=== PATIENT | female | born 1930 | race Caucasian/White ===

== ENCOUNTER → 2016-06-22 | Outpatient (CLI) | payer MEDICARE ==
[~2016-06-22] MED LIST: REGADENOSON 0.4 MG/5 ML SYRINGE ONE
== END | disposition home or self-care (01) ==
LOC: CFH 12:16
PROVIDERS: ATTEND Internal Medicine Cardiovascular Disease
DX: R07.9 Chest pain, unspecified (principal); R55 Syncope and collapse
CPT/HCPCS: 78452; 93017; A9502; J2785

== ENCOUNTER → 2017-01-18 | Outpatient (CLI) | payer MEDICARE | END | disposition home or self-care (01) | LOC: CVU 15:45 | PROVIDERS: ATTEND Internal Medicine Cardiovascular Disease | DX: I65.23 Occlusion and stenosis of bilateral carotid arteries (principal); Z86.73 Personal history of transient ischemic attack (TIA), and cerebral infarction without residual deficits | CPT/HCPCS: 93880 ==

== ENCOUNTER 2017-06-28 12:09 | Emergency (ER) | payer MEDICARE ==
[~2017-06-28] VITALS: Ht 170.2 cm; Wt 79.5 kg
[~2017-06-28 12:09] MED LIST changes: +ACET-1600 PO; +AMLO5TAB2 PO; +APIX5TAB PO; +ASPI-621 PO; +ATOR20TA9 PO; +CHOL100012 PO; +CITRACAL PO; +CLOP75TA PO; +GLUC1CAP48 PO; +HYDR50TA3 PO; +IPRA4AER INH; +LABE100T3 PO; +LEVO125T5 PO; +PANT40TA5 PO; +POTA20TA14 PO; +PRAZ2CAP2 PO; -REGADENOSON 0.4 MG/5 ML SYRINGE ONE; +UBID100C24 PO; +VITA1TAB19 PO; +VITA400C43 PO
[2017-06-28] MEDS ORDERED: DIPH,PERTUSS(ACELL),TET VAC/PF 0.5 ML IM-VACC ONE ×2 (12:53→13:00)
[2017-06-28 14:40] VITALS: BP 163/71
== END 2017-06-28 14:49 | disposition home or self-care (01) ==
LOC: ED 14:34
DX: S33.5XXA Sprain of ligaments of lumbar spine, initial encounter (principal); S51.001A Unspecified open wound of right elbow, initial encounter; I10 Essential (primary) hypertension; E03.9 Hypothyroidism, unspecified; Z86.73 Personal history of transient ischemic attack (TIA), and cerebral infarction without residual deficits; W11.XXXA Fall on and from ladder, initial encounter; Y93.89 Activity, other specified; Y92.099 Unspecified place in other non-institutional residence as the place of occurrence of the external cause; Y99.8 Other external cause status
CPT/HCPCS: 70450; 72110; 90471; 90715; 99284

== ENCOUNTER → 2017-10-11 | Outpatient (CLI) | payer MEDICARE ==
[~2017-10-11] MED LIST changes: -AMLO5TAB2 PO; +AMLO5TAB7 PO; -LABE100T3 PO; +LABE100T6 PO
== END | disposition home or self-care (01) ==
LOC: CFH 10:18
PROVIDERS: ATTEND Internal Medicine Cardiovascular Disease
DX: I65.22 Occlusion and stenosis of left carotid artery (principal); G31.9 Degenerative disease of nervous system, unspecified; J44.9 Chronic obstructive pulmonary disease, unspecified; Z87.891 Personal history of nicotine dependence
CPT/HCPCS: 70551

== ENCOUNTER → 2019-03-31 | Outpatient (CLI) | payer MEDICARE ==
[~2019-03-31] MED LIST changes: +AMLO-150 PO; -AMLO5TAB7 PO; -ASPI-621 PO; +ASPI81TA45 PO; +ATOR20TA37 PO; -ATOR20TA9 PO
== END | disposition home or self-care (01) ==
LOC: CVU 12:45
PROVIDERS: ATTEND Internal Medicine Cardiovascular Disease
DX: I65.23 Occlusion and stenosis of bilateral carotid arteries (principal); Z86.73 Personal history of transient ischemic attack (TIA), and cerebral infarction without residual deficits; I10 Essential (primary) hypertension
CPT/HCPCS: 93880